=== PATIENT | female | born 2000 | race African-American/Black ===

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

== ENCOUNTER 2023-11-03 02:32 | Inpatient (IN) ==
[2023-11-03 03:38] LABS: Urine Benzodiazepine Screen None Detected (None Detect); Urine Cannabinoids Screen Presumptive Positive (None Detect); Urine Opiates Screen None Detected (None Detect)
[2023-11-03 03:40] LABS: ABS Eosinophils 0.1 10^3/uL (0.0-0.5); ABS Lymphocytes 2.1 10^3/uL (1.0-4.8); ABS Monocytes 0.4 10^3/uL (0.0-0.9); ABS Neutrophils 3.4 10^3/uL (1.5-7.6); Eosinophil % 2.4 %; Hematocrit 38.1 % (35-45); Hemoglobin 12.8 g/dL (11.5-14.3); Lymphocyte % 33.9 %; Mean Corpuscular Hemoglobin 28.4 pg (27-33); Mean Corpuscular Hgb Conc 33.6 g/dL (31-36); Mean Corpuscular Volume 84.5 fL (80-97); Mean Platelet Volume 7.9 fL (7.5-11.2); Platelet Count 258 10^3/uL (150-450); Red Blood Count 4.51 10^6/uL (3.63-4.92); Red Cell Distribution Width 13.7 % (12-17); White Blood Count 6.1 10^3/uL (3.8-11.8)
[2023-11-03 03:41] LABS: Urine Appearance Cloudy; Urine Bilirubin Negative (Negative); Urine Blood 1+ (Negative); Urine Color Straw; Urine Glucose Negative (Negative); Urine Ketones Negative (Negative); Urine Nitrite Negative (Negative); Urine Protein Negative (Negative); Urine Specific Gravity 1.002 (1.002-1.030); Urine Urobilinogen Negative (Negative)
[2023-11-03 03:59] LABS: Urine Bacteria Absent (Absent); Urine Red Blood Cell Absent (Absent); Urine Squamous Epithelial Cell Present (Absent); Urine White Blood Cell Absent (Absent)
[2023-11-03 04:00] LABS: ALT 11 U/L (7-52); AST 18 U/L (13-39); Albumin 4.9 g/dL (3.2-5.2); Albumin/Globulin Ratio 1.7 (1-3); Alkaline Phosphatase 52 U/L (35-149); Anion Gap 11 mmol/L (2-16); Blood Urea Nitrogen 10 mg/dL (6-24); CO2 Carbon Dioxide 25 mmol/L (22-32); Calcium 9.3 mg/dL (8.6-10.3); Chloride 105 mmol/L (101-111); Creatinine, Serum 0.77 mg/dL (0.51-0.95); Globulin 2.9 g/dL (2-4); Glucose 97 mg/dL (70-100); Sodium 141 mmol/L (135-145); Total Protein 7.8 g/dL (6.4-8.9); eGFR CKD-EPI 112.5 (>60)
[2023-11-03 04:07] LABS: HCG Pregnancy < 0.60 mIU/mL
[2023-11-03 04:45] LABS: Acetaminophen < 15 mcg/mL; Alcohol, S 83 mg/dL (<13); Salicylate < 2.50 mg/dL (<30)
[2023-11-03 05:00] LABS: TSH Ultra Thyroid Stim Horm 1.77 mcIU/mL (0.34-5.60)
[2023-11-03] MEDS ORDERED: Al Hydrox/Mg Hydrox/Simet LIQ 30 ML UDC PO PRN (06:36)
[2023-11-03 06:53] LABS: Rapid COVID-19 Molecular Undetected (Undetected)
[2023-11-03 07:38] LABS: Influenza A Molecular Negative (Negative); Influenza B Molecular Negative (Negative)
[2023-11-03] MEDS: Vitamin THERAPEUTIC TAB PO SCH (09:07)
[2023-11-04 09:00] LABS: HDL Cholesterol 65.3 mg/dL
[2023-11-04] MEDS: Vitamin THERAPEUTIC TAB PO SCH (10:12)
[2023-11-05] MEDS: Vitamin THERAPEUTIC TAB PO SCH (10:25)
[2023-11-06] MEDS: Vitamin THERAPEUTIC TAB PO SCH (09:32)
[2023-11-06 09:47] VITALS: BP 109/72
== END 2023-11-06 16:00 | disposition home or self-care (01) | DRG 755 ==
LOC: ED 02:32 → EDHOLD 06:11 → BSU 06:11
PROVIDERS: ADMIT Psychiatry & Neurology Psychiatry; ATTEND Psychiatry & Neurology Psychiatry